=== PATIENT | female | born 2000 | race Caucasian/White ===

== ENCOUNTER 2025-01-05 22:32 | Emergency (ER) | payer OTHER ==
[~2025-01-05] VITALS: Ht 172.7 cm; Wt 70.0 kg
[2025-01-05 22:51] VITALS: O2SAT 96
[2025-01-05] MEDS: FAMOTIDINE 20MG TABLET PO ONE (23:22)
[2025-01-05] MEDS: PREDNISONE 20MG TABLET PO ONE (23:23)
[2025-01-05] MEDS: DIPHENHYDRAMINE 25MG CAPSULE PO ONE (23:23)
[2025-01-06] MEDS ORDERED: P20 MT (03:23)
[2025-01-06] MEDS ORDERED: FAMO-135 MT (03:23)
[2025-01-06] MEDS ORDERED: EPIN0.3P3 IM (03:23)
[2025-01-06] MEDS ORDERED: DIPH25CA83 PO (03:23)
[2025-01-06 03:26] VITALS: BP 125/83; PULSE 55; RESP 20; TEMP 36.8; O2SAT 98
== END 2025-01-06 03:40 | disposition home or self-care (01) ==
LOC: ER 22:32
DX: T78.40XA Allergy, unspecified, initial encounter (principal); F12.90 Cannabis use, unspecified, uncomplicated; Z79.899 Other long term (current) drug therapy; Z79.52 Long term (current) use of systemic steroids; Y92.89 Other specified places as the place of occurrence of the external cause
CPT/HCPCS: 99284; Q0163; J7512

== ENCOUNTER 2025-02-18 19:56 | Emergency (ER) | payer OTHER ==
[~2025-02-18] VITALS: Ht 172.7 cm; Wt 88.0 kg
[~2025-02-18 19:56] MED LIST: DIPH25CA83 PO; EPIN0.3P3 IM; FAMO-135 MT; P20 MT
[2025-02-18 19:58] VITALS: O2SAT 100
[2025-02-18 20:10] VITALS: BP 136/83; PULSE 77; RESP 20; TEMP 37.1
== END 2025-02-18 21:52 | disposition left against medical advice (07) ==
LOC: ER 19:56
DX: R07.89 Other chest pain (principal); R11.0 Nausea; Z53.21 Procedure and treatment not carried out due to patient leaving prior to being seen by health care provider